=== PATIENT | male | born 1975 | race Two or more races ===

== ENCOUNTER 2017-05-24 09:30 | Emergency (ER) | payer BC ==
[2017-05-24 11:20] LABS: BASOPHILS % (AUTO) 0.4 %; EOSINOPHILS # (AUTO) 0.1 10^3/uL (0.0-0.7); EOSINOPHILS % (AUTO) 0.6 %; HGB - HEMOGLOBIN 17.1 g/dL (14.0-18.0); LYMPHOCYTES # (AUTO) 2.2 10^3/uL (1.5-3.5); LYMPHOCYTES % (AUTO) 27.2 %; MEAN CORPUSCULAR HEMOGLOBIN 28.8 pg (27.0-31.0); MEAN CORPUSCULAR HGB CONC 33.5 g/dL (32.0-36.0); MEAN PLATELET VOLUME 7.8 fL (7.4-11.4); MONOCYTES # (AUTO) 0.4 10^3/uL (0.0-1.0); MONOCYTES % (AUTO) 4.8 %; NEUTROPHILS # (AUTO) 5.3 10^3/uL (1.5-6.6); PLT - PLATELET COUNT 235 10^3/uL (130-450); RED BLOOD COUNT 5.95 10^6/uL (4.70-6.10)
--- NOTE | 2017-05-24 11:23 | XRAY Report ---
EXAM: CHEST RADIOGRAPHY EXAM DATE: 05/24/2017 10:58 AM. CLINICAL HISTORY: Chest pain for 2 weeks. COMPARISON: None. TECHNIQUE: 2 views. FINDINGS: Lungs/Pleura: Mild inferior lingular opacity. Mediastinum: Heart and mediastinal contours are unremarkable. Other: Mild mid thoracic spine degenerative changes. IMPRESSION: 1. Mild inferior lingular atelectasis or early airspace disease. [facility] Referring Provider Line: [phone] SITE ID: [id number]
--- NOTE | 2017-05-24 11:28 | ED Physician Documentation ---
PD HPI CHEST PAIN - Stated complaint Stated Complaint: CHEST PAIN - Chief complaint Chief Complaint: Cardiac - History obtained from History obtained from: Patient - History of Present Illness Timing - onset: How many weeks ago (1) Timing - onset during: Rest, Light activity Timing - duration: Minutes Timing - details: Abrupt onset, Still present Quality: Pressure, Tightness, Aching, Throbbing Location: Substernal, Left chest, Left shoulder/arm, Left neck Radiation: Jaw, Left upper extremity Improved by: No: Rest Worsened by: No: Exertion, Inspiration, Movement, Palpation Associated symptoms: Shortness of air, General Weakness, Cough. No: Nausea, Feeling faint / dizzy, Palpitations, Other Similar symptoms before: Has not had sx before Recently seen: Not recently seen Review of Systems Constitutional: denies: Fever, Chills, Myalgias Nose: denies: Rhinorrhea / runny nose, Congestion Throat: denies: Sore throat Cardiac: reports: Chest pain / pressure. denies: Palpitations Respiratory: reports: Dyspnea. denies: Cough, Wheezing GI: denies: Abdominal Pain, Abdominal Swelling, Nausea, Vomiting, Diarrhea : denies: Dysuria, Frequency Skin: denies: Rash, Lesions PD PAST MEDICAL HISTORY - Past Medical History Cardiovascular: None Respiratory: None Neuro: None Endocrine/Autoimmune: None - Present Medications Home Medications: Ambulatory Orders Medication Instructions Recorded Confirmed Dexamethasone [Decadron] 4 mg PO DAILY #5 tablet 05/24/17 Doxycycline Monohydrate 100 mg PO BID #14 tablet 05/24/17 Pantoprazole Sodium 20 mg PO DAILY #30 tablet. 05/24/17 Sucralfate 1 gm PO QID #20 tablet 05/24/17 - Allergies Allergies/Adverse Reactions: Allergies Allergy/AdvReac Type Severity Reaction Status Date / Time No Known Drug Allergies Allergy Verified 05/24/17 09:46 - Social History Does the pt smoke?: Yes Does the pt drink ETOH?: No Does the pt have substance abuse?: No - Family History Family history: reports: CAD PD ED PE NORMAL - Vitals Vital signs reviewed: Yes - General General: Alert and oriented X 3, No acute distress, Well developed/nourished - HEENT HEENT: EOMI, Dentition benign - Neck Neck: Supple, no meningeal sign, No adenopathy - Cardiac Cardiac: RRR, No murmur - Respiratory Respiratory: Clear bilaterally - Abdomen Abdomen: Normal bowel sounds, Soft, Non distended, No organomegaly, Other ( tender epigastric area without guarding nor massess. ) - Male Male : Deferred - Rectal Rectal: Deferred - Back Back: No CVA TTP Results - Vitals Vitals: Vital Signs - 24 hr 05/24/17 05/24/17 09:35 12:58 Temperature 36.9 C 36.9 C Heart Rate 99 76 Respiratory 18 16 Rate Blood Pressure 150/95 H 130/84 H O2 Saturation 99 96 Oxygen O2 Source Room air - EKG (time done) 9:35 Rate: Rate (enter#) (89) Rhythm: NSR [place]: Normal Intervals: Normal SD QRS: Normal Ischemia: Normal ST segments. No: ST elevation c/w ischemia, ST depression - Labs Labs: Laboratory Tests 05/24/17 05/24/17 05/24/17 11:13 11:13 11:13 WBC 8.0 RBC 5.95 Hgb 17.1 Hct 51.1 MCV 86.0 MCH 28.8 MCHC 33.5 RDW 13.0 Plt Count 235 MPV 7.8 Neut # 5.3 Lymph # 2.2 [place] # 0.4 Eos # 0.1 Baso # 0.0 Absolute Nucleated RBC 0.00 Nucleated RBC % 0.0 Sodium 137 Potassium 3.8 Chloride 100 L Carbon Dioxide 27 Anion Gap 10.0 BUN 15 Creatinine 0.9 Estimated GFR (MDRD) 94 Glucose 101 H Calcium 10.4 H Total Bilirubin 0.6 AST 33 ALT 58 Alkaline Phosphatase 44 Troponin I < 0.04 Total Protein 8.3 H Albumin 4.9 Globulin 3.4 Albumin/Globulin Ratio 1.4 Lipase 40 - Rads (name of study) chest Radiology: Prelim report reviewed, EMP read contemporaneously (no acute process. ) PD MEDICAL DECISION MAKING - ED course Complexity details: considered differential (not exertionally based and labs are good. Consider noncardiac causes. Still to consider angina though is not exertional. ), d/w patient Departure - Departure Disposition: 01 Home, Self Care Clinical Impression: Chest pain Qualifiers: Chest pain type: precordial pain Qualified Code(s): R07.2 - Precordial pain Condition: Stable Record reviewed to determine appropriate education?: Yes Instructions: ED Chest Pain Atypical Unkn Cause, ED Pneumonia Adult Follow-Up: Yasir Foy DO [Primary Care Provider] - Prescriptions: Dexamethasone [Decadron] 4 mg PO DAILY #5 tablet Doxycycline Monohydrate 100 mg PO BID #14 tablet Pantoprazole Sodium 20 mg PO DAILY #30 tablet. Sucralfate 1 gm PO QID #20 tablet Comments: Your pain could potentially be from reflux an esophageal irritation. Since you have been having a lot of heartburn with the Prilosec will switch it to pantoprazole instead. For the next few days he could also coated with sucralfate a few times a day. However your chest x-ray does show some early possible pneumonia and you have had the cough so that may be causing the pain as well. We will treat that with doxycycline antibiotic and Decadron for inflammation. Recheck if not improving over the next few days. Call your primary care [facility] physicians and arrange a follow-up appointment. Tell them I would suggest possibly a stress test to fully ensure its not heart related. Forms: Activity restrictions Discharge Date/Time: 05/24/17 13:25
[2017-05-24 11:31] LABS: ALBUMIN 4.9 g/dL (3.2-5.5); ALBUMIN/GLOBULIN RATIO 1.4 (1.0-2.2); BILIRUBIN,TOTAL 0.6 mg/dL (0.2-1.0); CALCIUM 10.4 mg/dL (8.5-10.3); CREATININE 0.9 mg/dL (0.6-1.2); TOTAL PROTEIN 8.3 g/dL (6.7-8.2)
[2017-05-24 12:59] VITALS: BP 130/84
== END 2017-05-24 13:25 | disposition home or self-care (01) ==
LOC: ED 09:30
DX: R07.2 Precordial pain (principal); R06.00 Dyspnea, unspecified; R05 Cough; F17.200 Nicotine dependence, unspecified, uncomplicated
CPT/HCPCS: 36415; 71046; 80053; 83690; 84484; 85025; 93005; 99283; 99284

== ENCOUNTER 2017-06-05 12:41 | Outpatient (CLI) | payer BC ==
--- NOTE | 2017-06-06 01:23 | CT Report ---
EXAM: CT CHEST EXAM DATE: 06/05/2017 01:07 PM. CLINICAL HISTORY: SHORTNESS OF BREATH. COMPARISONS: None. TECHNIQUE: Routine helical CT imaging was performed through the chest. IV contrast: None. Reconstruct ions: Coronal and sagittal. In accordance with CT protocol optimization, one or more of the following dose reduction techniques w ere utilized for this exam: automated exposure control, adjustment of mA and/or KV based on patient s ize, or use of iterative reconstructive technique. FINDINGS: Lungs/Pleura: No pneumonia or effusion. No suspicious mass or nodule seen. Minimal lingular scarring/ atelectasis. Mediastinum: Normal. No adenopathy or masses. The heart and great vessels are normal. Bones: Unremarkable. Visualized Abdomen: Unremarkable. Other: None. IMPRESSION: Negative noncontrast chest CT. [facility] Referring Provider Line: [phone] SITE ID: [id number]
== END 2017-06-05 12:42 | disposition home or self-care (01) ==
LOC: DI 12:41
PROVIDERS: ATTEND Physician Assistant
DX: R06.02 Shortness of breath (principal)
CPT/HCPCS: 71250; 94010; 94664

== ENCOUNTER 2018-01-14 17:10 | Outpatient (CLI) | payer BC ==
--- NOTE | 2018-01-15 11:32 | Ultrasound Report ---
Reason: ABDOMINAL PAIN, EPIGASTRIC Procedure Date: 01/14/2018 Accession Number: [id number] / [id number] Procedure: US - Abdomen Limited CPT Code: FULL RESULT: EXAM: ABDOMEN ULTRASOUND LIMITED, RUQ EXAM DATE: 01/14/2018 06:22 PM. CLINICAL HISTORY: ABDOMINAL PAIN, EPIGASTRIC. COMPARISON: None. TECHNIQUE: Real-time scanning was performed with static images obtained. FINDINGS: Liver: Echogenic hepatic parenchyma. No hepatic lesions. No intrahepatic ductal dilatation. The liver is not enlarged, 15.3 cm. Main portal vein flow: Hepatopetal. Gallbladder: Non-mobile echogenic structures are seen along the gallbladder wall the largest measuring 6-7 mm. No gallbladder wall thickening. No pericholecystic fluid. Biliary System: CBD measures 3-4 mm. No intrahepatic or extrahepatic ductal dilatation. Other: Right kidney is normal in contour and echotexture and measures 9.9 cm. No hydronephrosis. Pancreas is not visualized and is obscured by overlying bowel gas. IMPRESSION: 1. Echogenic hepatic parenchyma, findings typically seen with fatty replacement. 2. Echogenic non-mobile structures along the gallbladder wall, polyps, non-mobile gallstones versus sludge balls. 3. No biliary ductal dilatation. [facility]
== END 2018-01-14 17:11 | disposition home or self-care (01) ==
LOC: DI 17:10
PROVIDERS: ATTEND Internal Medicine Gastroenterology
DX: R10.13 Epigastric pain (principal)
CPT/HCPCS: 76705

== ENCOUNTER 2018-03-10 09:20 | Day surgery (SDC) | payer BC ==
[2018-03-10] MEDS ORDERED: LACTATED RINGERS 1,000 ML IV ONE (09:55)
[2018-03-10] MEDS ORDERED: LIDO GARGLE 30 ML BOTTLE ONE (11:07)
[2018-03-10] MEDS ORDERED: LIDO GARGLE 30 ML BOTTLE PO ONE (11:15)
[2018-03-10] MEDS ORDERED: MIDAZOLAM 2 MG/2 ML VIAL IVP ONE (11:21)
[2018-03-10] MEDS ORDERED: fentaNYL 250 MCG/5 ML VIAL IVP ONE (11:21)
[2018-03-10 12:03] VITALS: BP 109/78
== END 2018-03-10 09:21 | disposition home or self-care (01) ==
LOC: SDS 09:20
PROVIDERS: ATTEND Internal Medicine Gastroenterology
PROC: 0DB78ZX Excision of Stomach, Pylorus, Via Natural or Artificial Opening Endoscopic, Diagnostic (ICD-10-PCS; principal; 2018-03-10 11:00)
DX: R10.13 Epigastric pain (principal); K21.9 Gastro-esophageal reflux disease without esophagitis; R07.89 Other chest pain; K44.9 Diaphragmatic hernia without obstruction or gangrene; K29.70 Gastritis, unspecified, without bleeding
CPT/HCPCS: 43239; A9270; J3010; J7120

== ENCOUNTER 2018-03-28 09:39 | Day surgery (SDC) | payer BC ==
[2018-03-28] MEDS ORDERED: ceFAZolin 2 GM/50 ML 2 GM/50 ML BAG IV ONE (09:49)
[2018-03-28] MEDS ORDERED: LACTATED RINGERS 1,000 ML IV ONE ×2 (10:25→15:07)
--- NOTE | 2018-03-28 11:01 | ANESTHESIA ---
Pre-Anesthesia VS, & Labs - Diagnosis symptomatic cholelithiasis - Procedure Laparoscopic cholecystectomy Vital Signs: Temp Pulse Resp BP Pulse Ox 36.6 C 68 16 124/78 98 03/28/18 10:28 03/28/18 10:28 03/28/18 10:28 03/28/18 10:28 03/28/18 10:28 Height 5 ft 8 in Weight (kg) 85 kg Body Mass Index 27.3 - NPO >8 hours Home Medications and Allergies Home Medications: Ambulatory Orders Albuterol Sulf [Ventolin Hfa Inhaler] 1 - 2 puffs INH Q4HR PRN 03/21/18 Omeprazole 40 mg PO DAILY 03/21/18 Albuterol Sulf [Ventolin Hfa Inhaler] 1 - 2 puffs INH Q4HR PRN 03/21/18 Omeprazole 40 mg PO DAILY 03/21/18 Allergies/Adverse Reactions: Allergies Allergy/AdvReac Type Severity Reaction Status Date / Time No Known Drug Allergies Allergy Verified 05/24/17 09:46 Anes History & Medical History - Anesthetic History Anesthesia Complications: reports: No previous complications - Medical History Cardiovascular: reports: None Pulmonary: reports: Asthma Gastrointestinal: reports: GERD, Cholelithiasis Urinary: reports: None Musculoskeletal: reports: Chronic back pain Endocrine/Autoimmune: reports: None Skin: reports: None Smoking Status: Former smoker (quit a year ago, had smoked 25yrs ppd) Exam Dental: WNL Mouth Opening: Greater than 4 Fingerbreadths Mallampati classification: II Thyromental Distance: greater than 6 cm Respiratory: Lungs clear Cardiovascular: Regular rate, Normal S1, Normal S2 Plan Anesthesia Type: General Consent for Procedure(s) Verified and Reviewed: Yes Code Status: Attempt Resuscitation ASA classification: 2-Mild systemic disease Is this case an emergency?: No
[2018-03-28] MEDS ORDERED: BUPIVACAINE 0.5%-EPI 1:200000 PF 30 ML VIAL ONE ×2 (11:13→12:08)
[2018-03-28] MEDS ORDERED: ceFAZolin 1 GM VIAL ONE (11:13)
[2018-03-28] MEDS ORDERED: DEXAMETHASONE 4 MG/ML VIAL IVP ONE (13:00)
[2018-03-28] MEDS ORDERED: MIDAZOLAM 2 MG/2 ML VIAL IVP ONE (13:00)
[2018-03-28] MEDS ORDERED: fentaNYL 100 MCG/2 ML VIAL IVP ONE (13:00)
[2018-03-28] MEDS ORDERED: LIDOCAINE-MPF 2% 5 ML VIAL IM ONE (13:00)
[2018-03-28] MEDS ORDERED: ACETAMINOPHEN 1,000 MG/100 ML 100 ML IV ONE (13:00)
[2018-03-28] MEDS ORDERED: ROCURONIUM 50 MG/5 ML VIAL IVP ONE (13:00)
[2018-03-28] MEDS ORDERED: PROPOFOL 200 MG/20 ML VIAL IVP ONE (13:00)
[2018-03-28] MEDS ORDERED: KETOROLAC 30 MG/ML VIAL IVP ONE (13:00)
[2018-03-28] MEDS ORDERED: ONDANSETRON 4 MG/2 ML VIAL IVP ONE (13:00)
[2018-03-28] MEDS ORDERED: BUPIVACAINE 0.5%-EPI 1:200000 PF 30 ML VIAL SUBQ ONE ×2 (13:28)
[2018-03-28] MEDS ORDERED: ceFAZolin 1 GM VIAL IR ONE (13:33)
[2018-03-28] MEDS ORDERED: IBUPROFEN 600 MG TABLET PO PRN (14:24)
[2018-03-28] MEDS ORDERED: oxyCODONE 5 MG TABLET PO PRN (14:24)
[2018-03-28] MEDS ORDERED: ACETAMINOPHEN 325 MG TABLET PO PRN (14:24)
[2018-03-28] MEDS ORDERED: ONDANSETRON 4 MG/2 ML VIAL IVP PRN (14:24)
[2018-03-28] MEDS: fentaNYL 100 MCG/2 ML VIAL ONE ×2 (14:48→14:59)
[2018-03-28] MEDS ORDERED: oxyCODONE 5 MG TABLET ONE (15:38)
[2018-03-28 17:25] VITALS: BP 118/79
--- NOTE | 2018-03-29 00:31 | OPERATIVE REPORT ---
DATE OF SERVICE: 03/28/2018 Physician: Ismael Amos MD PREOPERATIVE DIAGNOSIS: Symptomatic cholelithiasis. POSTOPERATIVE DIAGNOSIS: Symptomatic cholelithiasis. PROCEDURE PERFORMED: Laparoscopic cholecystectomy. SURGEON: Ismael Amos MD. ANESTHESIA TYPE/PROVIDER: General endotracheal by Lorenzo Robertson CRNA. ESTIMATED BLOOD LOSS: 10 mL. COMPLICATIONS: None. FINDINGS: Laparoscopy revealed moderate pericholecystic adhesions. The gallbladder appeared to be chronically inflamed. The cystic duct and common duct were thought to be of normal caliber. The visualized portion of the liver, stomach, small and large bowel were within normal limits. Following resection, the gallbladder was seen to contain multiple tiny, less than 1 mm yellow mixed cholesterol-type stones. INDICATIONS: Patient is a 42-year-old gentleman with epigastric and left upper quadrant pain of unclear etiology. Extensive evaluation included upper endoscopy, which was normal, laboratory testing, which was normal, cardiac evaluation, which was normal, CT scan, which was normal, and an ultrasound showing multiple small stones versus polyp versus sludge balls within the gallbladder. He was felt to be suffering symptomatic cholelithiasis and advised to undergo laparoscopic cholecystectomy. TECHNIQUE: After informed consent, the patient was taken to the operating room and was placed under general endotracheal anesthesia. Preoperative preparation included administration of sequential calf compression boots and administration of 2 grams of cefazolin intravenously within an hour of the incision. His abdomen was prepared with ChloraPrep solution and draped in the usual sterile fashion. A transverse incision was made along the inferior edge of the umbilicus and carried down through the layers of the abdominal wall until the peritoneum was identified and entered sharply. A 12 mm Magaly cannula was inserted and pneumoperitoneum achieved with carbon dioxide. A 10 mm Ramirez 30-degree telescope was inserted. Laparoscopy was carried out with findings noted above. Three 5 mm ports were placed in the right upper quadrant. Instruments were passed and the gallbladder was grasped and retracted in a cephalad and lateral direction. Pericholecystic adhesions were lysed bluntly and with electrocautery exposing the gallbladder, which was then grasped and further retracted laterally, exposing the cystic triangle of [place]. This region was carefully dissected using the hook electrode and electrocautery, isolating the cystic artery and cystic duct adjacent to the gallbladder. The critical view of safety was obtained. The cystic artery was doubly clipped proximally and distally adjacent to the gallbladder and divided between the sets of clips. The cystic duct was triply clipped distally, doubly proximally and divided between the sets of clips. The gallbladder was dissected from the liver bed using electrocautery for dissection and hemostasis. It was detached intact, placed in an organ retrieval bag, extracted, opened on the side table with findings noted above. The tissue was then sent for pathologic evaluation. After hemostasis was ensured, the right upper quadrant was copiously irrigated with saline solution, following which instruments and cannulas were removed under direct vision. Pneumoperitoneum was allowed to escape, and the incisions were closed in layers using continuous 0 Vicryl reapproximating the midline fascia of the umbilicus, followed by 4-0 Monocryl subcuticular skin closure and Dermabond for all the port sites. A total of 20 mL of 0.5% Marcaine with epinephrine was infiltrated into the incisions to assist in postoperative analgesia. Anesthesia was terminated and the patient was transferred to the recovery room in satisfactory condition. Sponge and needle counts correct x2. No drains were used. TD: 03/28/2018 14:48 MTDChristina
== END 2018-03-28 09:40 | disposition home or self-care (01) ==
LOC: SDS 09:39
PROVIDERS: ATTEND Internal Medicine Gastroenterology
PROC: 0FT44ZZ Resection of Gallbladder, Percutaneous Endoscopic Approach (ICD-10-PCS; principal; 2018-03-28 11:00)
DX: K80.10 Calculus of gallbladder with chronic cholecystitis without obstruction (principal); K82.8 Other specified diseases of gallbladder; K21.9 Gastro-esophageal reflux disease without esophagitis; J45.909 Unspecified asthma, uncomplicated; Z79.51 Long term (current) use of inhaled steroids; E66.9 Obesity, unspecified; Z68.29 Body mass index [BMI] 29.0-29.9, adult; Z87.891 Personal history of nicotine dependence
CPT/HCPCS: 47562; A9270; J0131; J0690; J7120

== ENCOUNTER 2019-10-20 08:00 | Outpatient (CLI) | payer BC ==
[2019-10-20 17:55] LABS: BASOPHILS % (AUTO) 0.5 %; EOSINOPHILS # (AUTO) 0.1 10^3/uL (0.0-0.7); EOSINOPHILS % (AUTO) 1.6 %; HGB - HEMOGLOBIN 16.6 g/dL (14.0-18.0); LYMPHOCYTES # (AUTO) 1.8 10^3/uL (1.5-3.5); LYMPHOCYTES % (AUTO) 28.8 %; MEAN CORPUSCULAR HEMOGLOBIN 28.6 pg (27.0-31.0); MEAN CORPUSCULAR HGB CONC 31.9 g/dL (32.0-36.0); MEAN CORPUSCULAR VOLUME 89.7 fL (80.0-94.0); MONOCYTES # (AUTO) 0.4 10^3/uL (0.0-1.0); MONOCYTES % (AUTO) 6.1 %; NEUTROPHILS # (AUTO) 3.9 10^3/uL (1.5-6.6); NEUTROPHILS % (AUTO) 62.5 %; PLT - PLATELET COUNT 289 10^3/uL (130-450); RED CELL DISTRIBUTION WIDTH 12.5 % (12.0-15.0); WHITE BLOOD COUNT 6.2 x10^3/uL (4.8-10.8)
[2019-10-20 18:21] LABS: ALBUMIN 4.5 g/dL (3.2-5.5); ALBUMIN/GLOBULIN RATIO 1.4 (1.0-2.2); ALKALINE PHOSPHATASE 47 IU/L (42-121); ALT ALANINE AMINOTRANSFERASE 50 IU/L (10-60); AST ASPARTATE AMINOTRANSFERASE 27 IU/L (10-42); BILIRUBIN,TOTAL 0.7 mg/dL (0.2-1.0); BUN - BLOOD UREA NITROGEN 15 mg/dL (6-20); CARBON DIOXIDE - CO2 24 mmol/L (21-32); CHLORIDE 101 mmol/L (101-111); CHOLESTEROL 199 mg/dL; CREATININE 1.2 mg/dL (0.6-1.2); GLUCOSE 98 mg/dL (70-100); HDL CHOLESTEROL 40 mg/dL; LDL CHOLESTEROL,CALCULATED 102 mg/dL; LDL/HDL RATIO 2.6 (<3.6); SODIUM 137 mmol/L (135-145); TOTAL PROTEIN 7.8 g/dL (6.7-8.2); VLDL CHOLESTEROL 57 mg/dL
[2019-10-20 18:32] LABS: HEMOGLOBIN A1c% 5.6 % (4.27-6.07)
== END 2019-10-20 23:59 | disposition home or self-care (01) ==
LOC: LAB.WCP 08:00
PROVIDERS: ATTEND Family Medicine
DX: E66.9 Obesity, unspecified (principal); R07.89 Other chest pain; Z68.34 Body mass index [BMI] 34.0-34.9, adult; R42 Dizziness and giddiness
CPT/HCPCS: 36415; 80053; 80061; 83036; 83721; 84443; 85025

== ENCOUNTER 2020-07-09 08:00 | Outpatient (CLI) | payer BC | END 2020-07-09 23:59 | disposition home or self-care (01) | LOC: LAB.N 08:00 | PROVIDERS: ATTEND Family Medicine | DX: K52.9 Noninfective gastroenteritis and colitis, unspecified (principal) | CPT/HCPCS: 81599; 87045; 87046; 87329; 87427; 87493 ==

== ENCOUNTER 2020-11-04 06:02 | Emergency (ER) | payer BC ==
[2020-11-04] MEDS ORDERED: BACITRACIN ZINC OINT 1 PACKET TOP STA (06:35)
--- NOTE | 2020-11-04 06:35 | ED Physician Documentation ---
History of Present Illness - Stated complaint Stated Complaint: HEAD LAC - Chief complaint Chief Complaint: Laceration - History obtained from History obtained from: Patient - Additonal information Additional information: Patient's presents with small laceration to forehead after hitting it on a shelf this morning denies loss of consciousness, headache, pain. No blood thinners. Review of Systems Skin: reports: Laceration (s) PD PAST MEDICAL HISTORY - Past Medical History Past Medical History: Yes Cardiovascular: None Respiratory: Asthma Endocrine/Autoimmune: None GI: GERD, Cholelithiasis : None HEENT: None Psych: None Musculoskeletal: Chronic back pain Derm: None - Past Surgical History Past Surgical History: Yes General: Cholecystectomy - Present Medications Home Medications: Ambulatory Orders Medication Instructions Recorded Confirmed Albuterol Sulf [Ventolin Hfa 1 - 2 puffs INH Q4HR PRN 03/21/18 11/04/20 Inhaler] Omeprazole 40 mg PO DAILY 03/21/18 11/04/20 - Allergies Allergies/Adverse Reactions: Allergies Allergy/AdvReac Type Severity Reaction Status Date / Time No Known Drug Allergies Allergy Verified 11/04/20 06:11 - Social History Does the pt smoke?: Yes Smoking Status: Current every day smoker Does the pt drink ETOH?: No Does the pt have substance abuse?: No - Immunizations Immunizations are current?: No Immunizations: TDAP >10years/unknown - POLST Patient has POLST: No PD ED PE NORMAL - Vitals Vital signs reviewed: Yes - General General: Alert and oriented X 3, No acute distress, Well developed/nourished - HEENT HEENT: PERRL, EOMI, Other (1cm laceration of midfrontal scalp) - Neck Neck: Supple, no meningeal sign, No bony TTP - Derm Derm: Normal color, Warm and dry - Extremities Extremities: No deformity - Neuro Neuro: Alert and oriented X 3, No motor deficit, No sensory deficit - Psych Psych: Normal mood, Normal affect Results - Vitals Vitals: Vital Signs - 24 hr 11/04/20 06:07 Temperature 36.5 C Heart Rate 94 Respiratory 16 Rate Blood Pressure 124/83 H O2 Saturation 98 Oxygen O2 Source Room air Procedures - Laceration (location) Scalp Anterior Length in cm: 1 Wound type: Linear, Clean Neurovascular status: Sensory intact, Motor intact, Vascular intact Anesthesia: Lidocaine 1% with epi Wound preparation: Irrigated copiously NS, Wound explored, To the base Skin layer closure: [place] (3) Other: Patient tolerated well, No complications, Dressing applied PD MEDICAL DECISION MAKING - ED course ED course: 45-year-old man presents with laceration of scalp after hitting it on a shelf this morning. Tetanus updated, laceration repaired with kai. Return precautions given. He will return for staple removal in 10 to 14 days. Departure - Departure Disposition: 01 Home, Self Care Clinical Impression: Laceration of scalp Condition: Good Instructions: ED Laceration All Comments: You are seen in the emergency department for a laceration of your scalp. 3 kai were placed that need to be taken out in 10 to 14 days. You can have this done at urgent care, ask your primary doctor if they have the equipment, or you can come back here.Monitor for any signs of infection and return right away if you have any new or worsening symptoms or other concerns.
[2020-11-04] MEDS ORDERED: TETANUS/DIPHTHERIA/PERTUSSIS 0.5 ML SYRINGE IM ONE (06:36)
[2020-11-04 07:04] VITALS: BP 120/60
== END 2020-11-04 07:04 | disposition home or self-care (01) ==
LOC: ED 06:02
DX: S01.01XA Laceration without foreign body of scalp, initial encounter (principal); W22.09XA Striking against other stationary object, initial encounter; Z23 Encounter for immunization; F17.200 Nicotine dependence, unspecified, uncomplicated
CPT/HCPCS: 12001; 90471; 90715; 99282; 99283; A9270